=== PATIENT | male | born 1960 | race Caucasian/White ===

== ENCOUNTER → 2025-07-19 | Outpatient (CLI) | payer MEDICARE, SELFPAY ==
[2025-07-19 12:46] LABS: Hematocrit 41.3 % (40-54); Hemoglobin 13.6 g/dL (13.0-16.5); Immature Granulocytes Count 0.040 X10^3/uL (0.0-0.0); Mean Corp Hgb Conc 32.9 g/dL (32-36); Mean Corpuscular Volume 87.5 fL (80-94); Mean Platelet Vol. 9.4 fl (6.2-12.0); NRBC Flagged by Analyzer 0 % (0-5); Platelet Count 303 K/mm3 (150-450); RBC Distribution Width CV 12.9 % (11.6-14.6); RBC Distribution Width SD 41.1 fl (35.1-43.9); Red Blood Count 4.72 M/mm3 (4.6-6.2); White Blood Count 5.9 K/mm3 (4.4-11.0)
[2025-07-19 13:02] LABS: AST(SGOT) 23 U/L (<=37); Alanine Aminotransfer ALT/SGPT 20 U/L (<=46); Albumin, Serum 4.2 g/dL (3.4-4.8); Alkaline Phosphatase 77 U/L (40-129); Anion Gap 11 (5-15); BUN 18 mg/dL (4-19); BUN/Creat Ratio 18.6 RATIO (10-20); Calcium,Total 9.3 mg/dL (7.6-11.0); Carbon Dioxide 23.9 mmol/L (21.0-32.0); Chloride 102 mmol/L (98-108); Cholesterol 222 mg/dL (<=200); Globulin 3.0 g/dL (2.2-4.2); Glucose 100 mg/dL (70-99); Low Density Lipoprotein Calc. 154 mg/dL; Potassium 4.5 mmol/L (3.3-5.1); Triglycerides 116 mg/dL; Very Low Density Lipoprotein 23 mg/dL (5-40); cholesterol:hdl ratio screen 4.90
[2025-07-19 13:54] LABS: PSA,Total - Annual Screen 8.84 ng/mL (0.02-4.00)
== END | disposition home or self-care (01) ==
PROVIDERS: PCP Nurse Practitioner Family; Referring Provider Nurse Practitioner Family; Visit Provider Nurse Practitioner Family
DX: I10 Essential (primary) hypertension (principal); E78.5 Hyperlipidemia, unspecified; T14.90XA Injury, unspecified, initial encounter; W57.XXXA Bitten or stung by nonvenomous insect and other nonvenomous arthropods, initial encounter; Z12.5 Encounter for screening for malignant neoplasm of prostate
CPT/HCPCS: 36415; 80053; 80061; 84153; 85025; 86617; G0103

== ENCOUNTER → 2025-08-17 | Outpatient (CLI) | payer MEDICARE, SELFPAY ==
[2025-08-17 18:13] LABS: PSA,Total- Diagnostic 8.20 ng/mL (0.00-4.00)
[2025-08-20 08:08] LABS: PSA, Free 0.90 ng/mL; PSA, Free % 10.8 % (.); PSA, Total Ultrasensitive 8.370 ng/mL (0.000-4.000)
== END | disposition home or self-care (01) ==
LOC: LAB 15:25
PROVIDERS: PCP Nurse Practitioner Family; Referring Provider Urology; Visit Provider Urology
DX: R97.20 Elevated prostate specific antigen [PSA] (principal)
CPT/HCPCS: 36415; 84153; 84154

== ENCOUNTER → 2025-08-31 | Outpatient (CLI) | payer MEDICARE, SELFPAY ==
--- NOTE | 2025-08-31 08:01 | MRI_ITS ---
PROCEDURE: PELVIS W/WO CONTRAST, 08/31/2025 REASON FOR EXAM: ELEVATED PSA. Per technologist report, PSA was 8.370 on 08/17/2025 TECHNIQUE: Multisequence multiplanar MRI pelvis was performed with and without IV contrast. IV Contrast: 15 mL Clariscan COMPARISON: None FINDINGS: Variable overall mild motion limitation. Prostate size: 4.3 x 3.2 x 3.6 cm, estimated volume 25.8 mL. Per the above provided PSA, PSA density is 0.324 ng/mL. Transition zone: PI-RADS 2 findings. Peripheral Zone: Background changes of likely prostatitis (PI-RADS 2). Additional lesions as below: *Lesion 1: LEFT posterior peripheral zone base probably involving the central zones and extending minimally across the midline to involve the medial most RIGHT posterior peripheral zone extending inferiorly into the LEFT mid posterolateral peripheral zone, 2.2 cm (series 12, image 14-17. *T2 score: 5. *DWI score: 5. *DCE: Positive. *Overall PI-RADS: 5. *Extracapsular extension:Capsular abutment over 1 cm, with a nodular focus of apparent restricted diffusion in the LEFT posterior periprostatic soft tissues associated with the LEFT neurovascular bundle equivocal for early involvement (series 7 and 9 images 11). Additional similar appearing but smaller findings slightly more cranially (image 7). No definite correlate is identifiable on the remainder of the sequences obtained however, to confirm involvement. Additionally, there is immediate abutment of the base of the ACIY-[id number]-RIGHT seminal vesicles without gross invasion. *Lesion 2: RIGHT posteromedial peripheral zone far apex, 0.9 cm (series 12, image 22).. *T2 score: 3. *DWI score: 3. *DCE: Negative. *Overall PI-RADS: PI-RADS 3. *Extracapsular extension:Capsular abutment without gross extracapsular extension. Neurovascular bundles: As above. Seminal vesicles: As above. Bladder: Grossly unremarkable. Lymph nodes: Unremarkable. Bones: No frankly destructive bony lesion identified. Presumed degenerative enhancement along the RIGHT lumbosacral junction and LEFT acetabulum. Other: Prominent periprostatic veins. Partially imaged probably trace RIGHT hydrocele. MRI/Pelvis W/WO Contrast IMPRESSION: 1. 2.2 cm PI-RADS 5 lesion in the LEFT posterior peripheral zone base to midgla nd probably involving the central zones and minimally the medial most RIGHT posterior peripheral zone base (lesion 1). 2. 0.9 cm PI-RADS 3 lesion in the RIGHT posteromedial peripheral zone far apex (lesion 2). 3. Capsular abutment well over 1 cm by lesion 1 with findings which are equivoc al for early involvement of the LEFT neurovascular bundle, seen only on a single sequence. Additionally, note immediate abutment of the bases of the LEFT greater than RIGHT seminal vesicles by lesion 1, without gross invasion. 4. No overt pelvic lymphadenopathy. 5. Additional description as above. Reading Location: [id number]
== END | disposition home or self-care (01) ==
LOC: OPMRI 07:58
PROVIDERS: PCP Nurse Practitioner Family; Referring Provider Urology; Visit Provider Urology
DX: R97.20 Elevated prostate specific antigen [PSA] (principal)
CPT/HCPCS: 72197; A9575; A4216

== ENCOUNTER → 2025-09-25 | Outpatient (CLI) | payer MEDICARE, SELFPAY ==
--- NOTE | 2025-09-25 13:00 | PROSBIL_PTH ---
PATIENT: GLORIA HANSON LOC: [facility] U#:[id number] AGE/SX: 65/M ROOM: RE09/25/[address]: Dr. Jh Shelton MD : 1960 BED: DIS: 09/25/2025 SPEC #: [id number] RECD: 09/26/25 10:11 STATUS: ELSIE REMalissa #: [id number] KEENAN: 09/25/25 13:[address]: Jh Shelton DEPT: SURGICAL PATHOLOGY RECD BY: Khadijah Lama ENTERED: 09/26/25 10:11 SP TYPE: PROST BX FELY DR: Ronna Long, JOHNATHAN-Domenico Tissues: A - PROSTATE RIGHT B - PROSTATE RIGHT C - PROSTATE RIGHT D - PROSTATE LEFT E - PROSTATE LEFT F - PROSTATE LEFT Procedures: PROSTATE BX Immunohistochemical Stains HEADER OPERATION: Prostate biopsy PRE-OP DIAGNOSIS: Elevated PSA TISSUE SUBMITTED: A - Right apex, B - Right mid, C - Right base, D - Left apex, E - Left mid, F - Left base MICROSCOPIC DIAGNOSIS A. Prostate, right, apex, biopsy: - Adenocarcinoma [place] score 3+3=6, involving two of multiple cores and 20% of the specimen. B. Prostate, right, mid, biopsy: - Adenocarcinoma [place] score 3+3=6, involving one of two cores and 8% of the specimen. C. Prostate, right, base, biopsy: - Benign prostatic tissue. D. Prostate, left, apex, biopsy: - Adenocarcinoma [place] score 3+3=6, involving one of two cores and 10% of the specimen. - PIN4 IHC supports the histologic impression. E. Prostate, left, mid, biopsy: - Adenocarcinoma [place] score 3+3=6, involving two of two cores and 75% of the specimen. F. Prostate, left, base, biopsy: - Adenocarcinoma [place] score 3+3=6, involving two of two cores and 80% of the specimen. MICROSCOPIC DESCRIPTION Slides are reviewed. All matched controls reacted appropriately. These tests were developed and their performance characteristics determined by [facility]. They may not have been cleared or approved by the [place]. Food and Drug Administration. The FDA has determined that such clearance or approval is not necessary. The above immunohistochemical markers and/or special?stains have been reviewed by the Pathologist. GROSS DESCRIPTION Received in prefer, in 6 containers labeled with the patient's name and date of . Designated as: A. RA are multiple benitez tissue cores, 0.7 cm to 1.0 cm in length by 0.1 cm in diameter. Entirely submitted in 1 cassette. B. RM are 2 benitez fragmented tissue cores, 1.1 cm and 1.3 cm in length by 0.1 cm in diameter. Entirely submitted in 1 cassette.C. RB are 2 benitez tissue cores, 0.9 cm and 1.6 cm in length by 0.1 cm in diameter. Entirely submitted in 1 cassette. D. LA are 2 benitez tissue cores, 1.3 cm and 1.7 cm in length by 0.1 cm in diameter. Entirely submitted in 1 cassette. E. LM are 2 benitez tissue cores, 1.8 cm and 1.9 cm in length by 0.1 cm in diameter. Entirely submitted in 1 cassette. F. LB are 2 benitez tissue cores, 1.2 cm and 1.6 cm in length by 0.1 cm in diameter. Entirely submitted in 1 cassette. MT 09/26/2025 CPT:73071o3,15850
== END | disposition home or self-care (01) ==
LOC: LAB 15:25 → LABSPEC 15:26
PROVIDERS: PCP Nurse Practitioner Family; Referring Provider Urology; Visit Provider Urology
DX: R97.20 Elevated prostate specific antigen [PSA] (principal)
CPT/HCPCS: 88305; 88342; G0416

== ENCOUNTER → 2025-10-17 | Outpatient (CLI) | payer MEDICARE, SELFPAY ==
--- NOTE | 2025-10-17 10:30 | PET_ITS ---
PROCEDURE: PET/CT TUMOR BASE -THIGH INIT 10/17/2025 REASON FOR EXAM: 65 y/o M with PYLARIFY Malignant neoplasm of the prostate. TECHNIQUE: Procedure Code: PETPTCTINIT Modality: PT Procedure: PET/CT TUMOR BASE -THIGH INIT Following the intravenous administration of radionucleotide, image acquisition on a dedicated PET/CT unit was performed at one hour post injection. A preliminary CT study encompassing the Head, neck, chest, abdomen, pelvis, and proximal thighs was performed for purposes of attenuation correction and anatomic localization. The proximal thighs were also included. RADIOPHARMACEUTICAL: 9.867 mCi Pylarify (Piflufolastat F18) - Prostate Specific Membrane Agent - IV was injected into he patient. RADIATION DOSE SUMMARY: Effective Dose: Approximately 7 mSv for a standard whole-body PET scan Organ Doses: Varies by organ, with higher doses typically to the bladder, liver, and brain COMPARISON: COMPARISON FROM CT, PET OR OTHER PERTINENT EXAMS: MRI pelvis of 08/31/2025. FINDINGS: Physiologic uptake: There may be expected metabolic uptake within the brain, tongue and floor of the mouth and larynx/vocal cords, heart, graham (many normal individuals have hilar uptake in less than 3 nodes with mildly avid hilar nodes less than 2.7 SUV), liver and spleen, system, and GI tract and symmetric muscle uptake. FDG AVID AND NON-AVID LESIONS. Reported avid SUV values (g/mL*) are maximum SUV. NECK: There are no significant neck abnormalities. CHEST: Chest wall- There are no significant chest wall abnormalities. Axilla- There are no significant axillary abnormalities. Lung parenchyma- There are no significant lung parenchyma abnormalities. Mediastinum- There are no significant hilar or mediastinal adenopathy. Pleura- There are no significant pleural abnormalities. ABDOMEN: Stomach- No significant abnormalities. Liver- No significant abnormalities. Spleen- No significant abnormalities. Pancrease- No significant abnormalities. Kidneys- No significant abnormalities. Bowel- Normal bowel activity. Spine- No significant abnormalities. PELVIS: Bowel- Normal physiologic bowel activity is identified. Masses- Increased activity seen of the left posterior peripheral prostate gland, with SUV max of 7.9. This is consistent with the patient's known prostate malignancy. Bones- With the use of bone window settings, there are no osteolytic or osteoblastic lesions. There are no FDG avid lesions within the visualized portion of the axial skeleton. PET/PET/CT Tumor Base -Thigh Init IMPRESSION: FDG avid- Focus of increased uptake at the prostate gland left posterior peripheral zone, consistent with previously identified malignancy at this site. No additional focus of abnormal uptake is seen. Other: No additional comments. Please note the low-dose CT scan was performed to facilitate PET image reconstr uction and anatomic localization and does not replace a diagnostic CT. Any diagnostic CT requested and performed at the time of the PET will be reported separately. Reading Location: [place] [id number]
== END | disposition home or self-care (01) ==
PROVIDERS: PCP Nurse Practitioner Family; Referring Provider Urology; Visit Provider Urology
DX: C61 Malignant neoplasm of prostate (principal)
CPT/HCPCS: 78815; A9595